=== PATIENT | male | born 1980 | race Caucasian/White ===

== ENCOUNTER 2018-10-29 13:52 | Emergency (ER) | payer MEDICAID ==
[~2018-10-29] VITALS: Ht 167.6 cm; Wt 69.4 kg
[2018-10-29 14:00] VITALS: BP 120/63
--- NOTE | 2018-10-29 14:06 | NUR ---
ice pack handed to pt to apply over nose
--- NOTE | 2018-10-29 15:28 | NUR ---
PATIENT AMBULATED TO BED 7.
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
[2018-10-29] MEDS ORDERED: ACETAMINOPHEN EXTRA STRENGTH 500 MG TAB PO ONE (16:55)
[2018-10-29] MEDS ORDERED: PHENYLEPHRINE 0.5% 15 ML BTL NS ONE (16:55)
[2018-10-29 17:20] VITALS: BP 118/82
== END 2018-10-29 17:21 | disposition home or self-care (01) ==
LOC: MED 13:52
DX: S00.33XA Contusion of nose, initial encounter (principal); R04.0 Epistaxis; Z88.0 Allergy status to penicillin; W54.1XXA Struck by dog, initial encounter; Y93.89 Activity, other specified; Y92.830 Public park as the place of occurrence of the external cause; Y99.8 Other external cause status
CPT/HCPCS: 70150; 99283

== ENCOUNTER 2020-11-21 07:49 | Emergency (ER) | payer MEDICAID ==
[~2020-11-21] VITALS: Ht 175.3 cm; Wt 77.1 kg
[2020-11-21 07:53] VITALS: BP 124/69
--- NOTE | 2020-11-21 08:15 | NUR ---
40 Y/O MALE C/O LEFT LOW BACK PAIN RADIATING TO RIGHT LOWER BACK X 2 WEEKS. AGGRAVATED BY MOVEMENT, PAIN SCALE 8/10. REPORTS MILD DYSURIA 1 WEEK AGO. DENIES TRAUMA OR INJURY TO AREA. DENIES N/V/D. LBM LAST NIGHT. RX: IBUPROFEN WITH RELIEF DENIES PMH ALLERGY: PENICILLIN
--- NOTE | 2020-11-21 08:30 | NUR ---
DR PATTERSON AT BEDSIDE EXAMINING PT
[2020-11-21 09:06] LABS: BASOPHILS % (AUTO) 0.7 % (0.0-2.0); EOSINOPHILS # (AUTO) 0.2 K/uL (0-0.4); EOSINOPHILS % (AUTO) 2.2 % (0.0-4.0); HEMATOCRIT 49.8 % (36-52); HEMOGLOBIN 17.4 g/dL (12.0-18.0); LYMPHOCYTES # (AUTO) 1.6 K/uL (2.0-11.5); LYMPHOCYTES % (AUTO) 22.2 % (20.5-51.1); MEAN CORPUSCULAR HEMOGLOBIN 31 pg (27-31); MEAN CORPUSCULAR HGB CONC 35 g/dL (33-37); MEAN CORPUSCULAR VOLUME 87.8 fL (80-94); MONOCYTES # (AUTO) 0.3 K/uL (0.8-1.0); MONOCYTES % (AUTO) 4.6 % (1.7-9.3); NEUTROPHILS # (AUTO) 5.1 K/uL (1.8-7.7); NEUTROPHILS % (AUTO) 70.3 % (42.2-75.2); PLATELET COUNT (AUTO) 209 K/uL (140-450); RED BLOOD CELL COUNT(AUTO) 5.67 MIL/uL (4.20-6.10); RED CELL DISTRIBUTION WIDTH 13.3 % (11.6-13.7); WHITE BLOOD COUNT (AUTO) 7.3 K/uL (4.8-10.8)
[2020-11-21 09:14] LABS: APPEARANCE,URINE CLEAR (CLEAR); BILIRUBIN,URINE NEGATIVE (NEGATIVE); BLOOD, URINE NEGATIVE (NEGATIVE); COLOR,URINE YELLOW (YELLOW); LEUKOCYTE ESTERASE ,URINE NEGATIVE (NEGATIVE); NITRITE, URINE NEGATIVE (NEGATIVE); PH,URINE 6.5 (5.0-9.0); UGLUCOSE NEGATIVE (NEGATIVE)
[2020-11-21 09:23] LABS: ANION GAP 12.3 (8-16); CARBON DIOXIDE 30.4 mmol/L (21-32); CREATININE 1.2 mg/dL (0.6-1.3); POTASSIUM 4.7 mmol/L (3.5-5.1)
[2020-11-21 09:29] LABS: TOTAL BILIRUBIN 0.8 mg/dL (0.0-1.0)
[2020-11-21] MEDS ORDERED: IBUP-2213 PO (10:14)
[2020-11-21 10:19] VITALS: BP 124/69
== END 2020-11-21 10:19 | disposition home or self-care (01) ==
LOC: MED 07:49
DX: R10.9 Unspecified abdominal pain (principal); Z88.0 Allergy status to penicillin; Z79.899 Other long term (current) drug therapy
CPT/HCPCS: 36415; 80053; 81003; 83690; 85025; 99284

== ENCOUNTER 2021-02-14 08:13 | Emergency (ER) | payer MEDICAID ==
[~2021-02-14] VITALS: Ht 172.7 cm; Wt 72.6 kg
[~2021-02-14 08:13] MED LIST: IBUP-2213 PO
[2021-02-14 08:17] VITALS: BP 117/69
[2021-02-14] MEDS ORDERED: NAPR-54 PO (10:28)
--- NOTE | 2021-02-14 10:40 | NUR ---
NO NEEED NURSING INTERVENTIONS. SEEN & TREATED BY DR PATTERSON.
[2021-02-14 10:48] VITALS: BP 117/69
== END 2021-02-14 10:48 | disposition home or self-care (01) ==
LOC: MED 08:13
DX: M54.9 Dorsalgia, unspecified (principal); J02.9 Acute pharyngitis, unspecified; R59.1 Generalized enlarged lymph nodes; Z88.0 Allergy status to penicillin; Z79.899 Other long term (current) drug therapy
CPT/HCPCS: 71045; 99283

== ENCOUNTER 2021-04-04 05:34 | Emergency (ER) | payer MEDICAID ==
[~2021-04-04] VITALS: Ht 165.1 cm; Wt 70.3 kg
[~2021-04-04 05:34] MED LIST changes: +NAPR-54 PO
[2021-04-04 06:06] VITALS: BP 107/70
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
--- NOTE | 2021-04-04 06:26 | NUR ---
RAD AT BEDSIDE.
[2021-04-04] MEDS ORDERED: AZIT250T11 PO (06:29)
[2021-04-04 07:12] VITALS: BP 107/70
--- NOTE | 2021-04-04 07:12 | NUR ---
Patient discharged with v/s stable. Written and verbal after care instructions given and explained. Patient alert, oriented and verbalized understanding of instructions. Ambulatory with steady gait. All questions addressed prior to discharge. ID band removed. Patient advised to follow up with PMD. Rx of AZITHROMYCIN given. Patient educated on indication of medication including possible reaction and side effects. Opportunity to ask questions provided and answered.
== END 2021-04-04 07:12 | disposition home or self-care (01) ==
LOC: MED 05:34
DX: S62.665A Nondisplaced fracture of distal phalanx of left ring finger, initial encounter for closed fracture (principal); H66.91 Otitis media, unspecified, right ear; Z88.0 Allergy status to penicillin; Z79.899 Other long term (current) drug therapy; X58.XXXA Exposure to other specified factors, initial encounter; Y93.89 Activity, other specified; Y92.89 Other specified places as the place of occurrence of the external cause; Y99.8 Other external cause status
CPT/HCPCS: 73130; 99283; Q0092

== ENCOUNTER 2021-04-18 06:56 | Emergency (ER) | payer MEDICAID ==
[~2021-04-18] VITALS: Ht 165.1 cm; Wt 78.5 kg
[~2021-04-18 06:56] MED LIST changes: +AZIT250T11 PO
[2021-04-18 07:06] VITALS: BP 122/65
--- NOTE | 2021-04-18 07:10 | NUR ---
PT SENT TO LOBBY
[2021-04-18] MEDS ORDERED: OFLO5SOL27 RIGHT EAR (08:00)
[2021-04-18] MEDS ORDERED: CLIN300C52 PO (08:04)
[2021-04-18 08:54] VITALS: BP 122/65
--- NOTE | 2021-04-18 08:54 | NUR ---
NO NURSING INTERVENTIONS PROVIDED
--- NOTE | 2021-04-18 08:55 | NUR ---
Patient discharged with v/s stable. Written and verbal after care instructions given and explained ABOUT OTITIS EXTERNA. Patient alert, oriented and verbalized understanding of instructions. Ambulatory with steady gait. All questions addressed prior to discharge. ID band removed. Patient advised to follow up with PMD. Rx of CLINDAMYCIN HCL AND FLOXIN OT given. Patient educated on indication of medication including possible reaction and side effects. Opportunity to ask questions provided and answered.
== END 2021-04-18 08:55 | disposition home or self-care (01) ==
LOC: MED 06:56
DX: H66.91 Otitis media, unspecified, right ear (principal); H72.91 Unspecified perforation of tympanic membrane, right ear; Z79.1 Long term (current) use of non-steroidal anti-inflammatories (NSAID); Z79.2 Long term (current) use of antibiotics; Z88.0 Allergy status to penicillin
CPT/HCPCS: 99283

== ENCOUNTER 2021-09-22 11:38 | Emergency (ER) | payer MEDICAID ==
[~2021-09-22] VITALS: Ht 167.6 cm; Wt 80.7 kg
[~2021-09-22 11:38] MED LIST changes: +CLIN300C52 PO; +OFLO5SOL27 RIGHT EAR
[2021-09-22 11:45] VITALS: BP 120/68
--- NOTE | 2021-09-22 11:49 | NUR ---
PT AMBULATED TO ER BED 10 WITH A STEADY GAIT.
--- NOTE | 2021-09-22 11:54 | NUR ---
40 Y/O MALE C/O UPPER BACK PAIN 01/03 01/03 DESCRIBES PRESSURE RADIATES TO RIGHT SIDE. PER PT STATES IT IS "LUNG PAIN" X3 WEEKS. PT STATES HE TOOK IBUPROFEN WITH SOME RELIEF. DENIES FEVER/CHILLS. DENIES N/V/D. DENIES PMH ALLERGIES: PENICILLIN
--- NOTE | 2021-09-22 12:03 | NUR ---
DR. MORGAN AT PT BEDSIDE FOR FURTHER EVALUATION.
--- NOTE | 2021-09-22 12:09 | NUR ---
RETAIL AREA MANAGER AT PT BEDSIDE.
--- NOTE | 2021-09-22 13:31 | NUR ---
PT RESTING IN BED, VISIBLE EQUAL RISE AND FALL OF CHEST, VSS, WILL CONTINUE TO MONITOR.
--- NOTE | 2021-09-22 13:31 | NUR ---
DR. MORGAN AT PT BEDSIDE FOR REEVALUATION.
[2021-09-22] MEDS ORDERED: IBUP-2213 PO (13:34)
[2021-09-22] MEDS ORDERED: ONDA8TAB87 PO (13:34)
[2021-09-22] MEDS ORDERED: ACET-8386 PO (13:34)
[2021-09-22 13:44] VITALS: BP 122/62
--- NOTE | 2021-09-22 13:46 | NUR ---
Patient discharged with v/s stable. Written and verbal after care instructions given and explained. Patient alert, oriented and verbalized understanding of instructions. Ambulatory with steady gait. All questions addressed prior to discharge. ID band removed. Patient advised to follow up with PMD. Rx of IBU,ZOFRAN,NORCO given. Patient educated on indication of medication including possible reaction and side effects. Opportunity to ask questions provided and answered.
== END 2021-09-22 13:44 | disposition home or self-care (01) ==
LOC: MED 11:38
DX: M54.6 Pain in thoracic spine (principal); Z79.2 Long term (current) use of antibiotics; Z79.1 Long term (current) use of non-steroidal anti-inflammatories (NSAID); Z88.0 Allergy status to penicillin
CPT/HCPCS: 71045; 99283; Q0092

== ENCOUNTER 2021-11-22 00:28 | Inpatient (IN) | payer MEDICAID ==
[~2021-11-22] VITALS: Ht 172.7 cm; Wt 81.6 kg
[~2021-11-22 00:28] MED LIST changes: +ACET-8386 PO; +ONDA8TAB87 PO
[2021-11-22 00:32] VITALS: BP 121/74
--- NOTE | 2021-11-22 01:02 | NUR ---
Dr. Saravia examining patient.
[2021-11-22] MEDS ORDERED: NACL 0.9% 1,000 ML IV ONE (01:05)
[2021-11-22] MEDS ORDERED: MORPHINE SULFATE 4 MG/ML SYR IVP ONE (01:05)
[2021-11-22] MEDS ORDERED: ONDANSETRON 4 MG/2 ML VIAL IVP ONE (01:05)
--- NOTE | 2021-11-22 01:07 | NUR ---
PT TAKEN TO CT
--- NOTE | 2021-11-22 01:34 | NUR ---
Blood for labwork drawn from left arm per jigsawyer. Patient tolerated well.
--- NOTE | 2021-11-22 01:38 | NUR ---
PT TAKEN TO BED 10
[2021-11-22 01:51] LABS: MEAN CORPUSCULAR HGB CONC 34 g/dL (33-37); MEAN CORPUSCULAR VOLUME 87.9 fL (80-94); PLATELET COUNT (AUTO) 236 K/uL (140-450)
[2021-11-22 01:55] LABS: APPEARANCE,URINE CLEAR (CLEAR); BILIRUBIN,URINE NEGATIVE (NEGATIVE); BLOOD, URINE NEGATIVE (NEGATIVE); COLOR,URINE YELLOW (YELLOW); LEUKOCYTE ESTERASE ,URINE NEGATIVE (NEGATIVE); NITRITE, URINE NEGATIVE (NEGATIVE); PH,URINE 5.5 (5.0-9.0); UGLUCOSE NEGATIVE (NEGATIVE)
[2021-11-22 02:00] LABS: MEAN CORPUSCULAR HEMOGLOBIN 30 pg (27-31); RED BLOOD CELL COUNT(AUTO) 6.03 MIL/uL (4.20-6.10); RED CELL DISTRIBUTION WIDTH 14.1 % (11.6-13.7); WHITE BLOOD COUNT (AUTO) 18.6 K/uL (4.8-10.8)
--- NOTE | 2021-11-22 02:04 | NUR ---
PT MOVED TO BED 08 VIA [facility]
[2021-11-22 02:09] LABS: ALBUMIN 4.2 g/dL (3.4-5.0); CARBON DIOXIDE 31.9 mmol/L (21-32); CREATININE 1.2 mg/dL (0.6-1.3); POTASSIUM 3.9 mmol/L (3.5-5.1); TOTAL BILIRUBIN 0.6 mg/dL (0.0-1.0)
[2021-11-22 02:10] LABS: RBC,URINE 0-5 /HPF (0-5); WBC,URINE 0-5 /HPF (0-5)
--- NOTE | 2021-11-22 02:21 | NUR ---
20G IV CATH PLACED IN R AC.
--- NOTE | 2021-11-22 02:22 | NUR ---
PT IS REFUSING PAIN MEDS AND NAUSEA MEDS
[2021-11-22 02:27] LABS: LYMPHOCYTES % (MANUAL) 15 % (20-46)
[2021-11-22] MEDS ORDERED: cefTRIAXone 1,000 MG VIAL ONE (04:00)
--- NOTE | 2021-11-22 04:25 | NUR ---
COVID AND FLU SWABS COLLECTED AND SENT TO LAB
[2021-11-22] MEDS ORDERED: MORPHINE SULFATE 4 MG/ML SYR IVP PRN (04:30)
--- NOTE | 2021-11-22 04:30 | NUR ---
ADMISSION ORDERS FOR [facility].
--- NOTE | 2021-11-22 04:43 | NUR ---
NG TUBE PLACEMENT AT BEDSIDE. XRAY AT BEDSIDE FOR PLACEMENT
[2021-11-22] MEDS ORDERED: ONDANSETRON 4 MG/2 ML VIAL ONE (05:03)
--- NOTE | 2021-11-22 05:09 | NUR ---
XRAY AT BEDSIDE SM BOWEL FOLLOW THROUGH XRAY
[2021-11-22] MEDS: ONDANSETRON 4 MG/2 ML VIAL IVP PRN ×2 (05:15→05:23)
[2021-11-22] MEDS ORDERED: ACETAMINOPHEN 325 MG TAB PO PRN (05:45)
[2021-11-22] MEDS ORDERED: HYDROcodone/APAP 5/325 MG 1 TAB TAB PO PRN (05:45)
[2021-11-22] MEDS ORDERED: ONDANSETRON 4 MG/2 ML VIAL IVP PRN (05:45)
--- NOTE | 2021-11-22 05:55 | NUR ---
CALL OUT TO DR MUNOZ FOR ORDER DC NG TUBE Addendum: 11/22/21 at 0624 by MNURPM CALL OUT TO DR MUNOZ ORDER FOR DC NG TUBE. PT MADE AWARE.
--- NOTE | 2021-11-22 06:13 | NUR ---
PT REFUSING NG TUBE . PT AWARE OF CALL OUT TO DR MUNOZ FOR RECIEVING ORDER ON DC OF NG. PT REFUSING TO WAIT. NG TUBE REMOVED. Addendum: 11/22/21 at 0626 by CHRISTINE PT REFUSING NG TUBE, PT REFUSING TO WAIT FOR DR HAYNES. NG TUBE DC
[2021-11-22] MEDS: NACL 0.9% 1,000 ML IV SCH ×3 (06:19→22:11)
[2021-11-22] MEDS: LEVOFLOXACIN 500 MG/D5W PREMIX 100 ML IV SCH (06:20)
[2021-11-22] MEDS: metroNIDAZOLE 500 MG/NS PREMIX 100 ML IV SCH ×3 (06:23→22:07)
--- NOTE | 2021-11-22 07:14 | NUR ---
REPORT GIVEN TO TIA GALEANA
--- NOTE | 2021-11-22 07:21 | NUR ---
REPORT RECEIVED FROM BETY GALENAA. ASSUMED CARE AT THIS TIME
--- NOTE | 2021-11-22 11:08 | NUR ---
PT TAKEN TO XRAY VIA WHEELCHAIR
[2021-11-22 11:10] LABS: BASOPHILS # (AUTO) 0.1 K/uL (0.00-0.22); BASOPHILS % (AUTO) 0.6 % (0.0-2.0); EOSINOPHILS # (AUTO) 0.1 K/uL (0-0.4); EOSINOPHILS % (AUTO) 1.2 % (0.0-4.0); HEMATOCRIT 45.8 % (36-52); HEMOGLOBIN 15.5 g/dL (12.0-18.0); LYMPHOCYTES # (AUTO) 0.9 K/uL (2.0-11.5); LYMPHOCYTES % (AUTO) 9.7 % (20.5-51.1); MEAN CORPUSCULAR HEMOGLOBIN 30 pg (27-31); MEAN CORPUSCULAR HGB CONC 34 g/dL (33-37); MEAN CORPUSCULAR VOLUME 87.3 fL (80-94); MONOCYTES # (AUTO) 0.6 K/uL (0.8-1.0); MONOCYTES % (AUTO) 6.3 % (1.7-9.3); NEUTROPHILS # (AUTO) 7.6 K/uL (1.8-7.7); NEUTROPHILS % (AUTO) 82.2 % (42.2-75.2); PLATELET COUNT (AUTO) 208 K/uL (140-450); RED BLOOD CELL COUNT(AUTO) 5.24 MIL/uL (4.20-6.10); RED CELL DISTRIBUTION WIDTH 14.2 % (11.6-13.7); WHITE BLOOD COUNT (AUTO) 9.2 K/uL (4.8-10.8)
--- NOTE | 2021-11-22 14:07 | NUR ---
CALL FOR PT ADMIT TRANSFER. 15 MIN WAIT REQUESTED PER PAMELA AKERS
--- NOTE | 2021-11-22 14:25 | NUR ---
Patient will be admitted to care of MONICA LARIOS. Admited to [facility]. Will go to room 105B. Belongings list completed. Report to PAMELA AKERS.
--- NOTE | 2021-11-22 14:26 | NUR ---
Chart checked and completed. The patient's care was reviewed and supervised by Kelly Roberts RN.
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
[2021-11-22 15:57] VITALS: BP 128/76
--- NOTE | 2021-11-22 17:00 | NUR ---
SPOKE TO DR MUNOZ, PT MAY HAVE CLEAR LIQUID DIET
--- NOTE | 2021-11-22 18:31 | NUR ---
PT IN BED, NO C/O PAIN, NO N/V/D, NO SOB
[2021-11-22 20:00] VITALS: BP 100/66
[2021-11-23 05:52] LABS: BASOPHILS % (AUTO) 0.7 % (0.0-2.0); EOSINOPHILS # (AUTO) 0.2 K/uL (0-0.4); EOSINOPHILS % (AUTO) 2.7 % (0.0-4.0); HEMATOCRIT 45.4 % (36-52); HEMOGLOBIN 15.5 g/dL (12.0-18.0); LYMPHOCYTES % (AUTO) 27.8 % (20.5-51.1); MEAN CORPUSCULAR HEMOGLOBIN 30 pg (27-31); MEAN CORPUSCULAR HGB CONC 34 g/dL (33-37); MEAN CORPUSCULAR VOLUME 87.9 fL (80-94); MONOCYTES # (AUTO) 0.5 K/uL (0.8-1.0); MONOCYTES % (AUTO) 7.6 % (1.7-9.3); NEUTROPHILS # (AUTO) 4.4 K/uL (1.8-7.7); NEUTROPHILS % (AUTO) 61.2 % (42.2-75.2); PLATELET COUNT (AUTO) 210 K/uL (140-450); RED BLOOD CELL COUNT(AUTO) 5.17 MIL/uL (4.20-6.10); RED CELL DISTRIBUTION WIDTH 13.9 % (11.6-13.7); WHITE BLOOD COUNT (AUTO) 7.1 K/uL (4.8-10.8)
[2021-11-23 06:06] LABS: ANION GAP 10.5 (8-16); CARBON DIOXIDE 27.3 mmol/L (21-32); CREATININE 1.1 mg/dL (0.6-1.3); POTASSIUM 3.8 mmol/L (3.5-5.1)
[2021-11-23 06:49] LABS: MAGNESIUM 3.4 mg/dL (1.8-2.4)
--- NOTE | 2021-11-23 07:11 | NUR ---
PATIENT HAS BEEN SCREENED AND CATEGORIZED MODERATE NUTRITION RISK. PATIENT WILL BE SEEN WITHIN 3-5 DAYS OF ADMISSION. 11/24/21-11/26/21 NEWTON JACKSON MS, RDN
--- NOTE | 2021-11-23 07:20 | NUR ---
Pt had no complaints at this time, denies any discomfort or pain during shift. endorsed continue of care with oncoming nurse.
--- NOTE | 2021-11-23 07:20 | NUR ---
RECEIVED REPORT FROM SENIOR UNIX ADMINISTRATOR NURSE FOR CONTINUITY OF CARE. PATIENT ASLEEP NO DISTRESS NOTED. IV SITE ON RIGHT AC LOVE 20 RUNNING AT 80 CC/HOUR. PER SENIOR UNIX ADMINISTRATOR NURSE UNABLE TO GIVE IV ANTIBIOTIC BECAUSE SHE IS WATCHING HER PATIENT NOT TO FALL.
[2021-11-23 08:00] VITALS: BP 103/64
--- NOTE | 2021-11-23 08:00 | NUR ---
Patient's Plan of Care was discussed and reviewed with LISSETT Vásquez
[2021-11-23] MEDS: LEVOFLOXACIN 500 MG/D5W PREMIX 100 ML IV SCH (08:21)
--- NOTE | 2021-11-23 08:24 | NUR ---
DELPHINE LUKE IV ANTIBIOTIC. PATIENT DENIES PAIN ALL SAFETY MEASURE IN PLACE. Addendum: 11/23/21 at 0830 by Agency DELPHINE AKERS UNable to hang morning antibotics will endorse to oncoming shift
--- NOTE | 2021-11-23 09:19 | NUR ---
GIVEN DUE LOVENOX MEDICATION ORDER. DIAMOX IVP FOLLOWING UP WITH PHARMACY.
[2021-11-23] MEDS ORDERED: METR-520 PO (09:57)
[2021-11-23] MEDS: metroNIDAZOLE 500 MG/NS PREMIX 100 ML IV SCH (09:57)
[2021-11-23] MEDS ORDERED: ONDA-188 PO (09:57)
[2021-11-23] MEDS ORDERED: LEVO750T51 PO (09:57)
[2021-11-23 10:50] VITALS: BP 103/64
--- NOTE | 2021-11-23 11:19 | NUR ---
PATIENT ALERT ORIENTED. NO ADVERSE REACTION ON IV ANTIBIOTIC GIVEN. DENIES NAUSEA OR VOMITING. GIVEN DISCHARGE PACKET WITH INSTRUCTION. PATIENT VERBALIZED UNDERSTANDING. REMOVE IV SITE WITH CATHETER INTACT. REMOVED NAME BAND. PATIENT WALKED TO TO HIS VEHICLE.
== END 2021-11-23 11:55 | disposition home or self-care (01) | DRG 720 ==
LOC: MED 00:28 → MTU 04:30
PROVIDERS: ADMIT Student in an Organized Health Care Education/Training Program; ATTEND Student in an Organized Health Care Education/Training Program
DX: A41.9 Sepsis, unspecified organism (principal); K56.7 Ileus, unspecified; K52.9 Noninfective gastroenteritis and colitis, unspecified; Z20.822 Contact with and (suspected) exposure to COVID-19; Z79.1 Long term (current) use of non-steroidal anti-inflammatories (NSAID); Z88.0 Allergy status to penicillin; Z79.899 Other long term (current) drug therapy
CPT/HCPCS: 36415; 71045; 74250; 80048; 80053; 81001; 82150; 83036; 83605; 83690; 83735; 84100; 85025; 87040; 87081; 87086; 96365; 96375; 99285; J0696; J1956; J2405; J3490; J7030; Q0092

== ENCOUNTER 2023-03-25 08:48 | Emergency (ER) | payer MEDICAID ==
[~2023-03-25] VITALS: Ht 167.6 cm; Wt 75.7 kg
[~2023-03-25 08:48] MED LIST changes: -ACET-8386 PO; -AZIT250T11 PO; -CLIN300C52 PO; +LEVO750T75 PO; +METR-520 PO; -NAPR-54 PO; -OFLO5SOL27 RIGHT EAR; +ONDA-188 PO; -ONDA8TAB87 PO
[2023-03-25 09:20] VITALS: BP 108/61; PULSE 74; RESP 18; TEMP 97.8; O2SAT 97
[2023-03-25 10:12] VITALS: O2SAT 97
[2023-03-25] MEDS ORDERED: LIDOCAINE 5% 1 EA PATCH TP ONE (10:15)
[2023-03-25] MEDS ORDERED: KETOROLAC 30 MG/ML VIAL IM ONE (10:15)
[2023-03-25 10:31] LABS: BASOPHILS # (AUTO) 0.1 K/uL (0.00-0.22); EOSINOPHILS # (AUTO) 0.1 K/uL (0-0.4); EOSINOPHILS % (AUTO) 1.6 % (0.0-4.0); HEMATOCRIT 47.1 % (36-52); HEMOGLOBIN 16.3 g/dL (12.0-18.0); LYMPHOCYTES # (AUTO) 2.5 K/uL (2.0-11.5); LYMPHOCYTES % (AUTO) 34.6 % (20.5-51.1); MEAN CORPUSCULAR HEMOGLOBIN 30 pg (27-31); MEAN CORPUSCULAR HGB CONC 35 g/dL (33-37); MEAN CORPUSCULAR VOLUME 86.6 fL (80-94); MONOCYTES # (AUTO) 0.4 K/uL (0.8-1.0); MONOCYTES % (AUTO) 5.9 % (1.7-9.3); NEUTROPHILS # (AUTO) 4.1 K/uL (1.8-7.7); NEUTROPHILS % (AUTO) 56.9 % (42.2-75.2); PLATELET COUNT (AUTO) 207 K/uL (140-450); RED BLOOD CELL COUNT(AUTO) 5.44 MIL/uL (4.20-6.10); RED CELL DISTRIBUTION WIDTH 13.2 % (11.6-13.7); WHITE BLOOD COUNT (AUTO) 7.1 K/uL (4.8-10.8)
[2023-03-25 10:55] LABS: ALBUMIN 4.1 g/dL (3.4-5.0); ANION GAP 8.1 (8-16); CALCIUM 9.2 mg/dL (8.5-10.1); CARBON DIOXIDE 31.3 mmol/L (21-32); CREATININE 1.1 mg/dL (0.6-1.3); POTASSIUM 3.4 mmol/L (3.5-5.1); TOTAL BILIRUBIN 0.5 mg/dL (0.0-1.0); TOTAL PROTEIN, SERUM 7.5 g/dL (6.4-8.2)
[2023-03-25 12:22] LABS: APPEARANCE,URINE CLEAR (CLEAR); BILIRUBIN,URINE NEGATIVE (NEGATIVE); BLOOD, URINE NEGATIVE (NEGATIVE); COLOR,URINE YELLOW (YELLOW); LEUKOCYTE ESTERASE ,URINE NEGATIVE (NEGATIVE); NITRITE, URINE NEGATIVE (NEGATIVE); PH,URINE 6.5 (5.0-9.0); PROTEIN,URINE NEGATIVE (NEGATIVE); UGLUCOSE NEGATIVE (NEGATIVE); UROBILINOGEN,URINE 0.2 EU/dL (0.2 - 1)
[2023-03-25] MEDS ORDERED: CYCL-711 PO (12:23)
[2023-03-25] MEDS ORDERED: IBUP-2218 PO (12:23)
[2023-03-25] MEDS ORDERED: ACET-10509 PO (12:23)
[2023-03-25 12:49] VITALS: BP 110/62; PULSE 73; RESP 18; TEMP 97.8; O2SAT 98
== END 2023-03-25 12:49 | disposition home or self-care (01) ==
LOC: MED 08:48
DX: R10.9 Unspecified abdominal pain (principal); R50.9 Fever, unspecified; Z79.899 Other long term (current) drug therapy; Z88.0 Allergy status to penicillin
CPT/HCPCS: 36415; 74176; 80053; 81003; 83690; 85025; 96372; 99285; J1885

== ENCOUNTER 2023-10-10 09:29 | Emergency (ER) | payer MEDICAID ==
[~2023-10-10] VITALS: Ht 170.2 cm; Wt 76.2 kg
[~2023-10-10 09:29] MED LIST changes: +ACET-10509 PO; +CYCL-711 PO; -IBUP-2213 PO; +IBUP-2218 PO; -LEVO750T75 PO; -METR-520 PO; -ONDA-188 PO
[2023-10-10 09:37] VITALS: BP 105/64; PULSE 81; RESP 18; TEMP 98; O2SAT 99
[2023-10-10] MEDS: KETOROLAC 30 MG/ML VIAL IM ONE (10:44)
[2023-10-10] MEDS ORDERED: IBUP-2213 PO (10:55)
[2023-10-10] MEDS ORDERED: AZIT250T4 PO (10:55)
== END 2023-10-10 11:19 | disposition home or self-care (01) ==
LOC: MED 09:29
DX: H72.91 Unspecified perforation of tympanic membrane, right ear (principal); Z79.1 Long term (current) use of non-steroidal anti-inflammatories (NSAID); Z79.899 Other long term (current) drug therapy; Z88.0 Allergy status to penicillin
CPT/HCPCS: 96372; 99283; J1885

== ENCOUNTER 2023-11-07 09:34 | Emergency (ER) | payer MEDICAID ==
[~2023-11-07] VITALS: Ht 170.2 cm; Wt 79.6 kg
[~2023-11-07 09:34] MED LIST changes: +AZIT250T4 PO; +IBUP-2213 PO
[2023-11-07 09:48] VITALS: BP 111/72; PULSE 81; RESP 18; TEMP 99.8; O2SAT 98
[2023-11-07 10:03] VITALS: TEMP 98.1
[2023-11-07] MEDS: NACL 0.9% 1,000 ML IV ONE (10:55)
[2023-11-07] MEDS: KETOROLAC 30 MG/ML VIAL IVP ONE (10:58)
[2023-11-07] MEDS: ONDANSETRON 4 MG/2 ML VIAL IVP ONE (11:10)
[2023-11-07 11:25] LABS: BASOPHILS # (AUTO) 0.1 K/uL (0.00-0.22); BASOPHILS % (AUTO) 0.9 % (0.0-2.0); EOSINOPHILS # (AUTO) 0.1 K/uL (0-0.4); EOSINOPHILS % (AUTO) 1.7 % (0.0-4.0); HEMATOCRIT 44.9 % (36-52); HEMOGLOBIN 15.8 g/dL (12.0-18.0); LYMPHOCYTES # (AUTO) 2.3 K/uL (2.0-11.5); LYMPHOCYTES % (AUTO) 30.5 % (20.5-51.1); MEAN CORPUSCULAR HEMOGLOBIN 30 pg (27-31); MEAN CORPUSCULAR HGB CONC 35 g/dL (33-37); MEAN CORPUSCULAR VOLUME 86.6 fL (80-94); MONOCYTES # (AUTO) 0.4 K/uL (0.8-1.0); MONOCYTES % (AUTO) 4.7 % (1.7-9.3); NEUTROPHILS # (AUTO) 4.8 K/uL (1.8-7.7); NEUTROPHILS % (AUTO) 62.2 % (42.2-75.2); PLATELET COUNT (AUTO) 209 K/uL (140-450); RED BLOOD CELL COUNT(AUTO) 5.19 MIL/uL (4.20-6.10); RED CELL DISTRIBUTION WIDTH 13.8 % (11.6-13.7); WHITE BLOOD COUNT (AUTO) 7.7 K/uL (4.8-10.8)
[2023-11-07 11:26] LABS: APPEARANCE,URINE CLEAR (CLEAR); BILIRUBIN,URINE NEGATIVE (NEGATIVE); BLOOD, URINE NEGATIVE (NEGATIVE); COLOR,URINE YELLOW (YELLOW); LEUKOCYTE ESTERASE ,URINE NEGATIVE (NEGATIVE); NITRITE, URINE NEGATIVE (NEGATIVE); PROTEIN,URINE NEGATIVE (NEGATIVE); UGLUCOSE NEGATIVE (NEGATIVE); UROBILINOGEN,URINE 0.2 EU/dL (0.2 - 1)
[2023-11-07 11:35] LABS: ANION GAP 8.5 (8-16); CALCIUM 8.9 mg/dL (8.5-10.1); CARBON DIOXIDE 30.7 mmol/L (21-32); POTASSIUM 4.2 mmol/L (3.5-5.1)
[2023-11-07 11:39] LABS: ALBUMIN 3.7 g/dL (3.4-5.0); BILIRUBIN,DIRECT 0.1 mg/dL (0.0-0.3); TOTAL BILIRUBIN 0.4 mg/dL (0.0-1.0); TOTAL PROTEIN, SERUM 6.9 g/dL (6.4-8.2)
[2023-11-07] MEDS ORDERED: CYCL-711 PO (13:41)
[2023-11-07] MEDS ORDERED: MELO-176 PO (13:41)
[2023-11-07 13:49] VITALS: BP 107/69; PULSE 71; RESP 16; O2SAT 96
== END 2023-11-07 13:50 | disposition home or self-care (01) ==
LOC: MED 09:34
DX: M54.50 Low back pain, unspecified (principal); R10.9 Unspecified abdominal pain; Z88.0 Allergy status to penicillin; Z79.899 Other long term (current) drug therapy
CPT/HCPCS: 36415; 74176; 80048; 80076; 81003; 83690; 85025; 96361; 96374; 99285; J1885; J2405; J7030

== ENCOUNTER 2024-03-31 19:53 | Emergency (ER) | payer MEDICAID ==
[~2024-03-31] VITALS: Ht 170.2 cm; Wt 74.8 kg
[~2024-03-31 19:53] MED LIST changes: -ACET-10509 PO; +ACET500T99 PO; +MELO-176 PO
[2024-03-31 19:57] VITALS: BP 88/56; PULSE 84; RESP 16; TEMP 101.6; O2SAT 96
[2024-03-31] MEDS ORDERED: LEVOFLOXACIN 500 MG/D5W PREMIX 100 ML IV ONE (20:00)
[2024-03-31 20:15] VITALS: BP 122/81; PULSE 76; RESP 16; TEMP 97.2; O2SAT 98
[2024-03-31] MEDS: NACL 0.9% 1,000 ML IV ONE (20:55)
[2024-03-31 21:10] VITALS: O2SAT 98
[2024-03-31] MEDS ORDERED: PRED20TA5 PO (21:26)
[2024-03-31] MEDS ORDERED: IBUP-2213 PO (21:27)
[2024-03-31 21:32] VITALS: BP 122/81; PULSE 76; RESP 16; TEMP 97.2; O2SAT 98
== END 2024-03-31 21:33 | disposition home or self-care (01) ==
LOC: MED 19:53
DX: R07.89 Other chest pain (principal); R05.9 Cough, unspecified; R06.02 Shortness of breath; R03.0 Elevated blood-pressure reading, without diagnosis of hypertension; Z79.899 Other long term (current) drug therapy
CPT/HCPCS: 93005; 99283